=== PATIENT | female | born 1990 | race Caucasian/White ===

== ENCOUNTER 2019-02-25 09:10 | Day surgery (SDC) | payer BC ==
[2019-02-21 12:35] VITALS: BMI 20.7
[2019-02-25] MEDS ORDERED: PROPOFOL 20 ML ONE ×4 (10:29→12:34)
[2019-02-25] MEDS ORDERED: MIDAZOLAM HCL 2 MG/2 ML SINGLE DOSE VIAL ONE ×2 (10:29)
[2019-02-25] MEDS ORDERED: LIDOCAINE HCL 2% (20ML MULTI-DOSE VIAL) NR ONE (10:41)
[2019-02-25] MEDS ORDERED: BUPIVACAINE HCL/EPINEPHRINE/PF 30 ML VIAL IJ ONE ×2 (10:41→13:26)
[2019-02-25] MEDS ORDERED: ONDANSETRON 4 MG/2 ML VIAL ONE ×2 (10:48→13:37)
[2019-02-25] MEDS ORDERED: DEXAMETHASONE SOD PHOSPHATE 4 MG/1 ML VIAL ONE (10:48)
[2019-02-25] MEDS ORDERED: CLINDAMYCIN PHOSPHATE 600 MG/4 ML VIAL ONE (10:55)
[2019-02-25] MEDS ORDERED: TRIAMCINOLONE ACET 40MG/1ML VIAL ONE (11:08)
[2019-02-25] MEDS ORDERED: DEXAMETHASONE SOD PHOSPHATE/PF 10 MG/ML SDV ONE (11:08)
[2019-02-25] MEDS ORDERED: KETOROLAC TROMETHAMINE 30 MG/1 ML VIAL ONE (13:37)
[2019-02-25] MEDS ORDERED: oxyCODONE HCL 5 MG TABLET PO PRN (14:38)
[2019-02-25] MEDS ORDERED: ONDANSETRON 4 MG/2 ML VIAL IVPUSH PRN (14:38)
[2019-02-25 14:42] VITALS: TEMP 97.9
[2019-02-25] MEDS ORDERED: LACTATED RINGERS SOLUTION 1,000 ML IV SCH (14:45)
[2019-02-25] MEDS ORDERED: SCOPOLAMINE HYDROBROMIDE 1 PATCH PATCH.TD72 ONE (15:42)
[2019-02-25 16:52] VITALS: BP 117/72; PULSE 75
--- NOTE | 2019-02-27 07:49 | OP ---
DATE OF OPERATION: 02/25/2019 SURGEON: Yong Bishop DPM PREOPERATIVE DIAGNOSIS: Bilateral bunions, bilateral tailor's bunion and plantar flexed metatarsal number 2, right. POSTOPERATIVE DIAGNOSIS: Bilateral bunions, bilateral tailor's bunion and plantar flexed metatarsal number 2, right. PROCEDURES PERFORMED: Arslan bunionectomy, right; Arslan and Richard bunionectomy, left; tailor's bunionectomy, bilateral; and 2nd metatarsal Ivis osteotomy, right. COMPLICATIONS: None. ESTIMATED BLOOD LOSS: Minimal. An ankle tourniquet was utilized. DESCRIPTION OF PROCEDURE: The patient was prepped and draped in the usual sterile manner. Attention was first given to the right foot, where, under tourniquet, attention was directed to the 1st MPJ. A medial incision approach was made. It was carried down to the level of the joint capsule, carefully preserving neurovascular structures, clamping and ligating or Bovieing bleeders as necessary. A linear capsulotomy was performed. The capsular and ligamentous structures attached to the head of the 1st metatarsal were dissected free. The joint was inspected. The hypertrophic dorsomedial eminence was removed with the sagittal saw. A V-shaped osteotomy was performed in the metatarsal metaphyseal region. The capital fragment was translocated laterally and held in place with a K-wire. Intraoperative fluoroscopy indicated good positioning. The fragment was then fixated with a single 2.4 screw. Following this, attention was directed to the 2nd metatarsophalangeal joint of the right foot, where a Ivis osteotomy was performed using a dorsal incision and again, through all procedures, carefully preserving neurovascular structures and Bovieing bleeders where needed. Following the linear capsulotomy of the dorsal joint, the Ivis osteotomy was performed with sagittal saw. The capital fragment was translocated proximally and fixated with a screw. It was first K-wired and positioned and under fluoroscopy noted to sit in a corrected position pre and post, as were the bunion and other procedures throughout the procedure. Fluoroscopy was used for all procedures. Attention was then directed to the 5th metatarsophalangeal joint, where a collateral incision was performed, carried down to the level of the joint capsule. Capsular incision was performed. The hypertrophic bone was excised. It was confirmed. It was rasped smooth as well. Again, with the bunion and this procedure, all excess bone was rongeuered and rasped smooth. The excess bone from the Ivis was also removed with a rongeur. There was noted to be excellent correction. Now all closure was performed with 2-0 Vicryl for capsule. This was after carefully and thoroughly flushing with sterile saline. Deep closure subcutaneous was then performed with 4-0 Vicryl, and skin with 5-0 nylon. This was for all locations on the foot. Attention then was directed to the left foot, where the bunionectomy and tailor's bunionectomy were performed, the same as was performed on the right foot. Additionally, the hallux was more abducted and an Richard osteotomy was performed in this area, with the hinge left intact, using the sagittal saw and a 10-mm staple in position and flush with the bone was put in place. Excellent correction was achieved. Again, fluoroscopy concurred with these findings. A postoperative block was given on both feet. The patient tolerated the procedures and anesthesia well, and left the operating room with vascular status intact to all digits and sterile bandages applied. The patient was seen in Recovery and I also spoke with the patient this morning, a day later, and the patient was doing very well. RACIEL CRAIG/[id number]
--- NOTE | 2019-02-27 16:04 | PATH ---
Surgical Pathology Report Patient Name: GUY SIGALA Med. Rec. #: [id number] /Age/Gender: 1990 (Age: 28) / F Account: [id number] Location: [facility] AMBUL[facility]ORY Taken: 02/25/2019 Received: 02/25/2019 Reported: 02/27/2019 Physicians: Yong Bishop M.D. Specimen(s) Received BONE BILATERAL FEET BUNION Clinical History Bunion bilateral feet Final Diagnosis BONE, BILATERAL FEET BUNIONS, EXCISION: FRAGMENTS OF BONE WITH FATTY MARROW SHOWING FOCAL DEGENERATIVE CHANGE. Electronically Signed Edward Lizama M.D. Gross Description Received in formalin labeled "bone bilateral feet bunions," are 5 srivastava-yellow, irregular portions of bone ranging from 0.7 x 0.5 x 0.1 cm to 1.7 x 1.4 x 0.2 cm. Rubber Stamp Maker sections are submitted in one cassette, following decalcification. /02/26/2019 saudi02/26/2019
== END 2019-02-25 16:30 | disposition home or self-care (01) ==
LOC: FASU 09:10
PROVIDERS: ATTEND Podiatrist Foot Surgery
PROC: 0QSN04Z Reposition Right Metatarsal with Internal Fixation Device, Open Approach (ICD-10-PCS; 2019-02-25)
PROC: 0QSN04Z Reposition Right Metatarsal with Internal Fixation Device, Open Approach (ICD-10-PCS; principal; 2019-02-25 11:04)
PROC: 0QSP04Z Reposition Left Metatarsal with Internal Fixation Device, Open Approach (ICD-10-PCS; 2019-02-25 11:04)
DX: M21.611 Bunion of right foot (principal); M21.612 Bunion of left foot; M21.621 Bunionette of right foot; M21.622 Bunionette of left foot; M21.6X1 Other acquired deformities of right foot
CPT/HCPCS: 73630-TC-LT; 73630-TC-RT-FY; 84703